=== PATIENT | female | born 1970 | race Caucasian/White ===

== ENCOUNTER 2018-05-18 11:11 | Emergency (ER) | payer SELFPAY ==
--- NOTE | 2018-05-18 11:47 | RAD REPORT ---
EXAM DESCRIPTION: CT - Head Brain Wo Cont - 05/18/2018 11:39 am CLINICAL HISTORY: HEADACHE COMPARISON: No comparisons TECHNIQUE: All CT scans are performed using dose optimization technique as appropriate and may inclu de automated exposure control or mA/KV adjustment according to patient size. FINDINGS: No intracranial hemorrhage, hydrocephalus or extra-axial fluid collection.No areas of brai n edema or evidence of midline shift. The paranasal sinuses and mastoids are clear. The calvarium is intact. IMPRESSION: No acute intracranial abnormality.
--- NOTE | 2018-05-18 12:13 | EDPHYS ---
Physician Documentation [facility] Name: Shirley Enrique Age: 47 yrs Sex: Female : 1970 Arrival Date: 05/18/2018 Time: 11:13 Bed 14 Private MD: ED Physician Clinton Posadas HPI: 05/18 11:28 This 47 yrs old Female presents to ER via Ambulatory with complaints of rn Headache - x1 mth. 11:28 The patient complains of pain to the left alevism. The patient describes the headache as rn aching, throbbing. Onset: The symptoms/episode began/occurred 1 month(s) ago. Severity of symptoms: At its worst the pain was moderate, in the emergency department the pain is unchanged. The symptoms are alleviated by nothing. the symptoms are aggravated by nothing. The patient has experienced similar episodes in the past. Reports has headaches in past but worse over last month, no fever, no head trauma, reports left side of head, throbbing, daily, constant, not worse/better. Had teeth pulled and thought it was dental in origin, still hurting after procedure. . RN MED SURG: 11:20 LMP N/A - Irregular menses rb1 Historical: - Allergies: 11:20 PENICILLINS; aj - Home Meds: 11:20 Clindamycin Oral [Active]; aj - PMHx: 11:20 COPD; Anxiety; aj - PSHx: 11:20 None; aj - Immunization history:: Adult Immunizations up to date. - Social history:: Smoking status: Patient uses tobacco products, smokes one pack cigarettes per day. - Ebola Screening: : Patient negative for fever greater than or equal to 101.5 degrees Fahrenheit, and additional compatible Ebola Virus Disease symptoms Patient denies exposure to infectious person Patient denies travel to an Ebola-affected area in the 21 days before illness onset No symptoms or risks identified at this time. - Family history:: not pertinent. - Hospitalizations: : No recent hospitalization is reported. ROS: 11:28 Constitutional: Negative for fever, chills, and weight loss, Eyes: Negative for injury, rn pain, redness, and discharge, Neck: Negative for injury, pain, and swelling, Cardiovascular: Negative for chest pain, palpitations, and edema, Respiratory: Negative for shortness of breath, cough, wheezing, and pleuritic chest pain, Abdomen/GI: Negative for abdominal pain, nausea, vomiting, diarrhea, and constipation, MS/Extremity: Negative for injury and deformity, Skin: Negative for injury, rash, and discoloration, Neuro: Negative for weakness, numbness, tingling, and seizure Exam: 11:28 Constitutional: This is a well developed, well nourished patient who is awake, alert, rn and in no acute distress. Head/Face: Normocephalic, atraumatic. Eyes: Pupils equal round and reactive to light, extra-ocular motions intact. Lids and lashes normal. Conjunctiva and sclera are non-icteric and not injected. Cornea within normal limits. Periorbital areas with no swelling, redness, or edema. Neck: Trachea midline, no thyromegaly or masses palpated, and no cervical lymphadenopathy. Supple, full range of motion without nuchal rigidity, or vertebral point tenderness. No Meningismus. Cardiovascular: Regular rate and rhythm with a normal S1 and S2. No gallops, murmurs, or rubs. Normal PMI, no JVD. No pulse deficits. Skin: Warm, dry with normal turgor. Normal color with no rashes, no lesions, and no evidence of cellulitis. MS/ Extremity: Pulses equal, no cyanosis. Neurovascular intact. Full, normal range of motion. Equal circumference. Neuro: Awake and alert, GCS 15, oriented to person, place, time, and situation. Cranial nerves II-XII grossly intact. Motor strength 5/5 in all extremities. Sensory grossly intact. Cerebellar exam normal. Normal gait. Vital Signs: 11:20 BP 130 / 84; Pulse 71; Resp 18; Temp 98.3; Pulse Ox 98% on R/A; Weight 74.84 kg; Height aj 5 ft. 4 in. (162.56 cm); 12:20 BP 105 / 64; Pulse 69; Resp 17; Pulse Ox 99% on R/A; rb1 12:48 BP 105 / 64; Pulse 80; Resp 18; Pulse Ox 100% on R/A; rb1 11:20 Body Mass Index 28.32 (74.84 kg, 162.56 cm) aj [place] Coma Score: 11:55 Eye Response: spontaneous(4). Verbal Response: oriented(5). Motor Response: obeys rn commands(6). Total: 15. MDM: 11:18 Patient medically screened. rn 11:55 Differential diagnosis: hypertensive headache, migraine, tension headache, vasomotor rn headache. Data reviewed: vital signs, nurses notes, radiologic studies, CT scan, and as a result, I will discharge patient. Counseling: I had a detailed discussion with the patient and/or guardian regarding: the historical points, exam findings, and any diagnostic results supporting the discharge/admit diagnosis, radiology results, the need for outpatient follow up, to return to the emergency department if symptoms worsen or persist or if there are any questions or concerns that arise at home. Response to treatment: the patient's symptoms have mildly improved after treatment. 11:58 Special discussion: I discussed with the patient/guardian in detail that at this point rn there is no indication for admission to the hospital. It is understood, however, that if the symptoms persist or worsen the patient needs to return immediately for re-evaluation. Based on the history and exam findings, there is no indication for further emergent testing or inpatient evaluation. I discussed with the patient/guardian the need to see the neurologist for further evaluation of the symptoms. 05/18 11:26 Order name: CT Head Brain wo Cont; Complete Time: 11:49 rn Administered Medications: 12:25 Drug: TORadol 30 mg Route: IM; Site: right deltoid; rb1 12:47 Follow up: Response: No adverse reaction rb1 Disposition: 05/18/18 12:12 Discharged to Home. Impression: Headache. - Condition is Stable. - Discharge Instructions: General Headache Without Cause. - Prescriptions for Fiorinal 50- 325-40 mg Oral Capsule - take 1 capsule by ORAL route every 4 hours As needed - not to exceed 6 capsules per day; 20 capsule. - Medication Reconciliation Form, Thank You Letter, Antibiotic Education, Prescription Opioid Use form. - Follow up: Private Physician; When: As needed; Reason: Recheck today's complaints, Re-evaluation by your physician. - Problem is an ongoing problem. - Symptoms have improved. Signatures: Dispatcher [employer] Esmer Aparicio RN Clinton Gerber MD MD rn Barber, Rebecca, RN RN rb1 Corrections: (The following items were deleted from the chart) 12:50 12:12 05/18/2018 12:12 Discharged to Home. Impression: Headache. Condition is Stable. rb1 Forms are Medication Reconciliation Form, Thank You Letter, Antibiotic Education, Prescription Opioid Use. Follow up: Private Physician; When: As needed; Reason: Recheck today's complaints, Re-evaluation by your physician. Problem is an ongoing problem. Symptoms have improved. rn
[2018-05-18] MEDS ORDERED: KETOROLAC 30 MG/ML INJ ONE (12:28)
--- NOTE | 2018-05-18 12:50 | ER ---
Nurse's Notes [facility] Name: Shirley Enrique Age: 47 yrs Sex: Female : 1970 Arrival Date: 05/18/2018 Time: 11:13 Bed 14 Private MD: Diagnosis: Headache Presentation: 05/18 11:19 Presenting complaint: Patient states: Headache to left rastafarian for 1 month. Patient aj reports having teeth pulled on that side recently. Transition of care: patient was not received from another setting of care. Onset of symptoms was April 18, 2018. Risk Assessment: Do you want to hurt yourself or someone else? Patient reports no desire to harm self or others. Initial Sepsis Screen: Does the patient meet any 2 criteria? No. Patient's initial sepsis screen is negative. Does the patient have a suspected source of infection? No. Patient's initial sepsis screen is negative. Care prior to arrival: Medication(s) given: Motrin, 400 mg, 30 min YEAST WASHER Tylenol, 1000 mg, 30 min YEAST WASHER. 11:19 Method Of Arrival: Ambulatory 11:19 Acuity: DAPHNE 4 Triage Assessment: 11:20 Headache History: The patient has had previous headaches. General: Appears in no aj apparent distress. comfortable, Behavior is calm, cooperative, appropriate for age. Pain: Complains of pain in left rastafarian and left zygomatic area Pain Pain began gradually, 1 month ago Also complains of no other associated symptoms. Neuro: Level of Consciousness is awake, alert, obeys commands, Oriented to person, place, time, situation, Appropriate for age Reports headache in left parietal area. Neuro: Career Manager are equal bilaterally Moves all extremities. Full function Gait is steady, Speech is normal, Facial symmetry appears normal. Respiratory: Airway is patent Respiratory effort is even, unlabored, Respiratory pattern is regular, symmetrical. Derm: Skin is intact, is healthy with good turgor, Skin is pink, warm \T\ dry. normal. BODY FORMER: 11:20 LMP N/A - Irregular menses rb1 Historical: - Allergies: 11:20 PENICILLINS; aj - Home Meds: 11:20 Clindamycin Oral [Active]; aj - PMHx: 11:20 COPD; Anxiety; aj - PSHx: 11:20 None; aj - Immunization history:: Adult Immunizations up to date. - Social history:: Smoking status: Patient uses tobacco products, smokes one pack cigarettes per day. - Ebola Screening: : Patient negative for fever greater than or equal to 101.5 degrees Fahrenheit, and additional compatible Ebola Virus Disease symptoms Patient denies exposure to infectious person Patient denies travel to an Ebola-affected area in the 21 days before illness onset No symptoms or risks identified at this time. - Family history:: not pertinent. - Hospitalizations: : No recent hospitalization is reported. Screenin:20 Abuse screen: Denies threats or abuse. Nutritional screening: No deficits noted. rb1 Tuberculosis screening: No symptoms or risk factors identified. Fall Risk None identified. Assessment: 11:20 General: Appears in no apparent distress. comfortable, Behavior is calm, cooperative, rb1 Denies fever. Pain: Complains of pain in left side of head Pain currently is 8 out of 10 on a pain scale. Neuro: Level of Consciousness is awake, alert, obeys commands, Oriented to person, place, time, situation. Neuro: Career Manager are equal bilaterally Moves all extremities. Gait is steady, Speech is normal, Facial symmetry appears normal, Pupils are PERRLA. Cardiovascular: Capillary refill < 3 seconds is brisk in bilateral fingers. Respiratory: Airway is patent Respiratory effort is even, unlabored, Respiratory pattern is regular, symmetrical. GI: No signs and/or symptoms were reported involving the gastrointestinal system. : No signs and/or symptoms were reported regarding the genitourinary system. Derm: Skin is pink, warm \T\ dry. Musculoskeletal: Range of motion: intact in all extremities. 11:38 Reassessment: pt. went to CT. rb1 12:20 Reassessment: Patient appears in no apparent distress at this time. Patient and/or rb1 family updated on plan of care and expected duration. Pain level reassessed. Patient is alert, oriented x 3, equal unlabored respirations, skin warm/dry/pink. 12:48 Reassessment: Discharge pending due to shot time. rb1 Vital Signs: 11:20 BP 130 / 84; Pulse 71; Resp 18; Temp 98.3; Pulse Ox 98% on R/A; Weight 74.84 kg; Height aj 5 ft. 4 in. (162.56 cm); 12:20 BP 105 / 64; Pulse 69; Resp 17; Pulse Ox 99% on R/A; rb1 12:48 BP 105 / 64; Pulse 80; Resp 18; Pulse Ox 100% on R/A; rb1 11:20 Body Mass Index 28.32 (74.84 kg, 162.56 cm) [place] Coma Score: 11:55 Eye Response: spontaneous(4). Verbal Response: oriented(5). Motor Response: obeys rn commands(6). Total: 15. ED Course: 11:13 Patient arrived in ED. sb2 11:17 Clinton Posadas MD is Attending Physician. rn 11:20 Triage completed. aj 11:20 Arm band placed on left wrist. Patient placed in an exam room. aj 11:20 Patient has correct armband on for positive identification. Bed in low position. Call rb1 light in reach. Side rails up X 1. Pulse ox on. NIBP on. 11:25 Chula Davalos, RN is Primary Nurse. rb1 11:[address] via wheelchair. vr 11:39 CT completed. Patient tolerated procedure well. Patient moved back from CT. vm2 11:39 CT Head Brain wo Cont In Process Unspecified. EDMS 12:48 No provider procedures requiring assistance completed. Patient did not have IV access rb1 during this emergency room visit. Administered Medications: 12:25 Drug: TORadol 30 mg Route: IM; Site: right deltoid; rb1 12:47 Follow up: Response: No adverse reaction rb1 Outcome: 12:12 Discharge ordered by . rn 12:48 Discharged to home ambulatory. rb1 12:48 Condition: stable 12:48 Discharge instructions given to patient, Instructed on discharge instructions, follow up and referral plans. medication usage, Demonstrated understanding of instructions, follow-up care, medications, Prescriptions given X 1. 12:50 Patient left the ED. rb1 Signatures: Dispatcher [employer] EDMS Esmer Jacinto RN Clinton Gerber MD MD rn Davis, Victoria vr Chula Davalos, Ct Whitten RN 2 Erin Richmond 2
== END 2018-05-18 12:50 | disposition home or self-care (01) ==
LOC: ER 11:11
DX: R51 Headache (principal); F17.210 Nicotine dependence, cigarettes, uncomplicated; Z88.0 Allergy status to penicillin
CPT/HCPCS: 70450; 96372; 99284

== ENCOUNTER 2018-10-11 19:55 | Emergency (ER) | payer SELFPAY ==
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
[2018-10-11] MEDS ORDERED: IBUPROFEN 400 MG TAB ONE (22:07)
[2018-10-11] MEDS ORDERED: CYCLOBENZAPRINE 10 MG TAB ONE (22:07)
== END 2018-10-11 22:07 | disposition home or self-care (01) ==
LOC: ER 19:55
DX: M54.12 Radiculopathy, cervical region (principal); V49.40XA Driver injured in collision with unspecified motor vehicles in traffic accident, initial encounter; F17.210 Nicotine dependence, cigarettes, uncomplicated; Z88.0 Allergy status to penicillin
CPT/HCPCS: 99283

== ENCOUNTER 2024-05-29 16:02 | Emergency (ER) | payer OTHER, SELFPAY ==
--- NOTE | 2024-05-29 17:32 | RAD REPORT ---
EXAM DESCRIPTION: US - Extremity Venous Uni Ltd - 05/29/2024 5:07 pm CLINICAL HISTORY: Swelling COMPARISON: None. TECHNIQUE: Real-time sonographic evaluation of the right lower extremity deep venous system was perf ormed. FINDINGS: Normal compressibility, flow augmentation, phasic flow and spontaneous flow is identified in the right lower extremity deep venous system. No intraluminal filling defects seen. Several complex fluid collections are present within the popliteal fossa, the largest measuring 6.4 b y 4.9 cm. IMPRESSION: No DVT in the right lower extremity. Three fluid collections in the region of the popliteal fossa are again identified. These were recentl y evaluated with CT and MRI.
--- NOTE | 2024-05-29 17:39 | EDPHYS ---
Physician Documentation [facility] Name: Shirley Enrique Age: 53 yrs Sex: Female : 1970 Arrival Date: 05/29/2024 Time: 16:02 Bed 17 Private MD: ED Physician Nimo Torrez HPI: 05/29 16:30 This 53 yrs old Female presents to ER via Wheelchair with complaints of Leg Pain. [facility] 16:30 53-year-old female with a past medical history of depression and anxiety presents to [facility] the ER for right lower leg swelling. She was seen 3 days ago in this ER and evaluated by Dr. James and Dr. Hernandez. She was diagnosed with a ruptured Hays's cyst, and was told to follow-up in clinic for an ultrasound. The patient reports that her pain is worsened and that she is having trouble walking. She denies any fever.. Historical: - Allergies: 16:30 PENICILLINS; tl4 - PMHx: 16:30 Anxiety; COPD; depressive disorder; panic attack; tl4 - Immunization history:: Adult Immunizations unknown. - Infectious Disease History:: Denies. - Social history:: Smoking status: Patient reports the use of cigarette tobacco products, smokes one pack cigarettes per day. ROS: 16:30 Constitutional: Per [place] [id number] Exam: 16:30 Constitutional: This is a well developed, well nourished patient who is awake, alert, [facility] and in no acute distress. Head/Face: Normocephalic, atraumatic. Neck: Trachea midline, no thyromegaly or masses palpated, and no cervical lymphadenopathy. Supple, full range of motion without nuchal rigidity, or vertebral point tenderness. No Meningismus. Cardiovascular: Regular rate and rhythm with a normal S1 and S2. No gallops, murmurs, or rubs. Normal PMI, no JVD. No pulse deficits. Respiratory: Lungs have equal breath sounds bilaterally, clear to auscultation and percussion. No rales, rhonchi or wheezes noted. No increased work of breathing, no retractions or nasal flaring. Abdomen/GI: Soft, non-tender, with normal bowel sounds. No distension or tympany. No guarding or rebound. No evidence of tenderness throughout. Skin: Warm, dry with normal turgor. Normal color with no rashes, no lesions, and no evidence of cellulitis. Neuro: Awake and alert, GCS 15, oriented to person, place, time, and situation. Cranial nerves II-XII grossly intact. Motor strength 5/5 in all extremities. Sensory grossly intact. Cerebellar exam normal. Normal gait. 16:30 Musculoskeletal/extremity: Extremities: noted in the right calf: pain, swelling, tenderness, Vital Signs: 16:27 BP 141 / 84; Pulse 96; Resp 16; Temp 97(TE); Pulse Ox 100% ; Weight 65.77 kg; Height 5 tl4 ft. 4 in. ; Pain 8/10; 17:50 BP 133 / 100; Pulse 95; Resp 16; Pulse Ox 99% on R/A; nj1 16:27 Body Mass Index 24.89 (65.77 kg, 162.56 cm) tl4 16:27 Pain Scale: Adult tl4 MDM: 16:04 Patient medically screened. [facility] 17:40 Differential diagnosis: Ruptured Hays's cyst, DVT. Data reviewed: vital signs, nurses [facility] notes, radiologic studies, ultrasound. I considered the following discharge prescriptions or medication management in the emergency department Medications were administered in the Emergency Department. See MAR. Counseling: I had a detailed discussion with the patient and/or guardian regarding the historical points, exam findings, and any diagnostic results supporting the discharge/admit diagnosis, the need for outpatient follow up, a orthopedic surgeon, to return to the emergency department if symptoms worsen or persist or if there are any questions or concerns that arise at home. ED course: Inform the patient that I thoroughly reviewed all of her imaging and ED notes from 3 days ago. She was instructed to follow-up with Dr. James for repeat ultrasound. She stated that she had not yet followed up. Provided her the imaging results from the ultrasound done today and encouraged her to follow-up. Informed her to return to the ER if she develops a fever, streaking/redness, or any new concerning symptoms.. 05/29 16:14 Order name: US Extremity Venous Unilateral Ltd; Complete Time: 17:33 [facility] Administered Medications: No medications were administered Disposition: 19:31 I reviewed the patient's care provided by the Advanced Practice Provider and agree with sd2 the diagnosis and treatment plan. Disposition Summary: 05/29/24 17:39 Discharge Ordered Notes: Location: Home [facility] Problem: an ongoing problem [facility] Symptoms: are unchanged [facility] Condition: Stable [facility] Diagnosis - Pain in right lower leg [facility] Followup: [facility] - With: Zan James MD - When: 2 - 3 days - Reason: Further diagnostic work-up Discharge Instructions: - Discharge Summary Sheet [facility] - Hays Cyst [facility] Forms: - Medication Reconciliation Form [facility] - Patient Portal Instructions [facility] - Leadership Thank You Letter [facility] Prescriptions: - Naprosyn 500 mg Oral Tablet - take 1 tablet ORAL route 2 times per day take with food; 30 tablet; Refills: 0, jh7 Product Selection Permitted Signatures: Dispatcher [employer] EDMS Spring Montaño FNP CHRISTIAN SCIENCE NURSE 7 Nimo Torrez MD MD sd2 Johnathan Brady RN RN tl4
--- NOTE | 2024-05-29 17:39 | ER ---
Nurse's Notes [facility] Name: Shirley Enrique Age: 53 yrs Sex: Female : 1970 Arrival Date: 05/29/2024 Time: 16:02 Bed 17 Private MD: Diagnosis: Pain in right lower leg Presentation: 05/29 16:27 Chief complaint: Patient states: Pt c/o Hays cyst to posterior right lower leg x 3 tl4 days. Pt evaluated at this ED 2 days ago for the same. Pt states it continue to be painful and decreased weight bearing. Coronavirus screen: At this time, the client does not indicate any symptoms associated with coronavirus-19. Ebola Screen: No symptoms or risks identified at this time. Initial Sepsis Screen: Does the patient meet any 2 criteria? No. Patient's initial sepsis screen is negative. Does the patient have a suspected source of infection? No. Patient's initial sepsis screen is negative. Risk Assessment: Do you want to hurt yourself or someone else? Patient reports no desire to harm self or others. Onset of symptoms was May 25, 2024. 16:27 Method Of Arrival: Wheelchair tl4 16:27 Acuity: DAPHNE 3 tl4 Triage Assessment: 16:31 General: Appears uncomfortable, Behavior is cooperative. Pain: Complains of pain in tl4 right leg. EENT: No signs and/or symptoms were reported regarding the EENT system. Neuro: Level of Consciousness is awake, alert, obeys commands, Oriented to person, place, time, situation. Cardiovascular: Capillary refill < 3 seconds Patient's skin is warm and dry. Respiratory: Airway is patent Respiratory effort is even, unlabored, Respiratory pattern is regular, symmetrical. GI: No signs and/or symptoms were reported involving the gastrointestinal system. : No signs and/or symptoms were reported regarding the genitourinary system. Derm: No signs and/or symptoms reported regarding the dermatologic system. Musculoskeletal: Reports pain in right leg. Historical: - Allergies: 16:30 PENICILLINS; tl4 - PMHx: 16:30 Anxiety; COPD; depressive disorder; panic attack; tl4 - Immunization history:: Adult Immunizations unknown. - Infectious Disease History:: Denies. - Social history:: Smoking status: Patient reports the use of cigarette tobacco products, smokes one pack cigarettes per day. Screenin:[address] [facility] ED Fall Risk Assessment (Adult) History of falling in the last 3 months, kj2 including since admission No falls in past 3 months (0 pts) Confusion or Disorientation No (0 pts) Intoxicated or Sedated No (0 pts) Impaired Gait Yes (1 pt) Mobility Assist Device Used No (0 pt) Altered Elimination No (0 pt) Score/Fall Risk Level 0 - 2 = Low Risk Oriented to surroundings, Maintained a safe environment, Hourly rounding (assess needs \T\ fall precautionary measures) done. Abuse screen: Denies threats or abuse. Denies injuries from another. Nutritional screening: No deficits noted. Tuberculosis screening: No symptoms or risk factors identified. Assessment: 16:45 General: Appears in no apparent distress. uncomfortable, Behavior is calm, cooperative, kj2 appropriate for age. 16:45 Pain: Complains of pain in right leg Pain currently is 8 out of 10 on a pain scale. kj2 Neuro: Level of Consciousness is awake, alert, obeys commands, Oriented to person, place, time, situation. Cardiovascular: Patient's skin is warm and dry. Respiratory: Airway is patent Respiratory effort is even, unlabored. Musculoskeletal: Reports pain in right leg. 17:50 Reassessment: Patient appears in no apparent distress at this time. Patient is alert, nj1 oriented x 3, equal unlabored respirations, skin warm/dry/pink. Vital Signs: 16:27 BP 141 / 84; Pulse 96; Resp 16; Temp 97(TE); Pulse Ox 100% ; Weight 65.77 kg; Height 5 tl4 ft. 4 in. ; Pain 8/10; 17:50 BP 133 / 100; Pulse 95; Resp 16; Pulse Ox 99% on R/A; nj1 16:27 Body Mass Index 24.89 (65.77 kg, 162.56 cm) tl4 16:27 Pain Scale: Adult tl4 ED Course: 16:03 Patient arrived in ED. im 16:04 Spring Montaño [facility]NP [facility]. jh7 16:04 Nimo Torrez MD is Attending Physician. jh7 16:30 Triage completed. tl4 16:32 Arm band placed on right wrist. tl4 16:45 Estrellita Wright, ISABELLA is Primary Nurse. kj2 16:57 Patient has correct armband on for positive identification. Bed in low position. Call kj2 light in reach. Provided Education on: call light, fall precautions. 17:09 US Extremity Venous Unilateral Ltd In Process Unspecified. EDMS 17:38 Zan James MD is Referral Physician. [facility] 17:50 No provider procedures requiring assistance completed. nj1 17:50 Patient did not have IV access during this emergency room visit. nj1 Administered Medications: No medications were administered Medication: 17:50 VIS not applicable for this client. nj1 Outcome: 17:39 Discharge ordered by . [facility] 17:50 Discharged to home via wheelchair, nj1 17:50 Condition: stable 17:50 Discharge instructions given to patient, Instructed on discharge instructions, follow up and referral plans. medication usage, Demonstrated understanding of instructions, follow-up care, medications, Prescriptions given X 1, 17:54 Patient left the ED. nj1 Signatures: Dispatcher [employer] EDMS Spring Montaño FNP PSYCH THERAPIST 7 Mara Wood, RN RN nj1 Yvrose Molina Toni RN RN tl4 Estrellita Wright, RN RN kj2
[2024-06-02 14:45] VITALS: BP 141/84; TEMP 97; O2SAT 100
== END 2024-05-29 17:54 | disposition home or self-care (01) ==
LOC: ER 16:02
DX: M79.661 Pain in right lower leg (principal); J44.9 Chronic obstructive pulmonary disease, unspecified; F17.210 Nicotine dependence, cigarettes, uncomplicated; Z88.0 Allergy status to penicillin
CPT/HCPCS: 93971; 99283